=== PATIENT | male | born 1995 | race Caucasian/White ===

== ENCOUNTER 2023-01-03 10:06 | Emergency (ER) | payer OTHER ==
[~2023-01-03] VITALS: Ht 182.9 cm; Wt 114.5 kg
[2023-01-03] MEDS ORDERED: LISI5TAB11 PO (10:15)
[2023-01-03 11:28] VITALS: BP 133/76
== END 2023-01-03 11:34 | disposition home or self-care (01) ==
LOC: M ED 11:08
DX: U07.1 COVID-19 (principal); I10 Essential (primary) hypertension; Z79.811 Long term (current) use of aromatase inhibitors